=== PATIENT | male | born 1970 | race Caucasian/White ===

== ENCOUNTER 2018-07-24 18:58 | Emergency (ER) | payer OTHER, BC ==
[~2018-07-24] VITALS: Ht 185.4 cm; Wt 158.8 kg
[~2018-07-24 18:58] MED LIST: AMLO5; AMPDEX10CR; BENAML10/5; HYDACE5 PO; IRBHYD150
[2018-07-24] MEDS ORDERED: LOSA50 (19:31)
[2018-07-24] MEDS ORDERED: NEBI10 PO (19:31)
[2018-07-24 21:00] LABS: Calcium, Ionized (POC) 1.06 mmol/L (1.10-1.46); Chloride (POC) 103 mmol/L (98-108); Creatinine (POC) 0.7 mg/dL (0.8-1.3); Glucose (ISTAT POC) 102 mg/dL (70-99); Hemoglobin (POC) 14.6 g/dL (13.5-17.5); Potassium (POC) 3.1 mmol/L (3.5-5.5); Sodium (POC) 142 mmol/L (135-148); Total CO2 (POC) 26 mmol/L (21-32)
[2018-07-24] MEDS ORDERED: Percocet 5-3251 EACH PO (21:14)
== END 2018-07-24 21:50 | disposition home or self-care (01) ==
LOC: ER 18:58
PROVIDERS: Emergency Medicine
DX: S46.812A Strain of other muscles, fascia and tendons at shoulder and upper arm level, left arm, initial encounter (principal); S20.211A Contusion of right front wall of thorax, initial encounter; I10 Essential (primary) hypertension; Z79.899 Other long term (current) drug therapy; V89.2XXA Person injured in unspecified motor-vehicle accident, traffic, initial encounter
CPT/HCPCS: 36415; 71046; 80047; 85014; 93005; 93010; 99284-25

== ENCOUNTER 2019-05-19 09:33 | Day surgery (SDC) | payer OTHER ==
[~2019-05-19] VITALS: Ht 188 cm; Wt 170.1 kg
[~2019-05-19 09:33] MED LIST changes: +AMLO5 PO; +AMPDEX10CR PO; +LOSA50; +LOSARTAN-HCTZ1 EACH PO; +Lopressor 25 mg25 MG PO; +NEBI10 PO; +Percocet 5-3251 EACH PO
--- NOTE | 2019-05-19 10:36 | NUR ---
1005 Ambulatory in Day SurgeryPatient states colon prep results clear. History, Chart, Medications and Allergies reviewed before start of procedure.Lungs clear T/O to Auscultation. Patient confirms NPO status and agrees with scheduled surgery. Pre-Op teaching done. Pt verbalizes understanding.
--- NOTE | 2019-05-19 11:27 | NUR ---
05/19/19 Yolanda7 Suzie La UPDATED PATIENT RELATED TO DELAY.
--- NOTE | 2019-05-19 13:09 | NUR ---
Discharge instructions reviewed with patient. Patient verbalizes understanding. Copy given to patient to take home.
--- NOTE | 2019-05-19 13:31 | NUR ---
1315- Discharged via wheelchair to private car for ride home.
== END 2019-05-19 13:15 | disposition home or self-care (01) ==
LOC: ORSCMMR 09:33 → ORD 11:15 → ORSCMMR 11:15
PROVIDERS: Internal Medicine Gastroenterology
PROC: 0DBM8ZX Excision of Descending Colon, Via Natural or Artificial Opening Endoscopic, Diagnostic (ICD-10-PCS; principal; 2019-05-19 11:15)
PROC: 0DBK8ZX Excision of Ascending Colon, Via Natural or Artificial Opening Endoscopic, Diagnostic (ICD-10-PCS; principal; 2019-05-19 11:15)
DX: Z12.11 Encounter for screening for malignant neoplasm of colon (principal); D12.2 Benign neoplasm of ascending colon; D12.4 Benign neoplasm of descending colon; K64.8 Other hemorrhoids; K57.30 Diverticulosis of large intestine without perforation or abscess without bleeding; I10 Essential (primary) hypertension; E66.9 Obesity, unspecified; Z68.43 Body mass index [BMI] 50.0-59.9, adult; Z79.899 Other long term (current) drug therapy
CPT/HCPCS: 88305; J2250; J2704; J7120